=== PATIENT | female | born 1995 | race American Indian/Alaskan Native ===

== ENCOUNTER 2017-06-28 21:45 | Emergency (ER) | payer OTHER ==
[2017-06-28 22:26] LABS: HCG,QUALITATIVE URINE NEGATIVE (NEGATIVE)
[2017-06-28 22:27] LABS: SQUAMOUS EPITHIAL 1 /hpf (0-5); URINE BACTERIA RARE (<OCC); URINE BILIRUBIN NEGATIVE (NEGATIVE); URINE CLARITY Clear (Clear); URINE COLOR Yellow (YELLOW); URINE GLUCOSE (UA) NORMAL (Normal); URINE LEUKOCYTE ESTERASE NEG Leu/uL (Negative); URINE NITRATE NEGATIVE (NEGATIVE); URINE PROTEIN NEGATIVE (NEGATIVE)
[2017-06-28 22:30] LABS: URINE BLOOD NEGATIVE (NEGATIVE)
[2017-06-28] MEDS ORDERED: Sodium Chloride 0.9% 1,000 ML IV ONE (22:42)
[2017-06-28] MEDS ORDERED: Sodium Chloride 0.9% 1,000 ML ONE (23:00)
[2017-06-28 23:14] VITALS: RESP 20
--- NOTE | 2017-06-28 23:16 | C.PDOC ---
History Of Present Illness 22 year old female with history of ovarian cysts presents to the ED c/o right adnexal pain and heavy vaginal bleeding for the past several days. Patient denies any other physical complaints at this time. Time Seen by Provider: 06/28/17 22:37 Chief Complaint (Nursing): Female Genitourinary History Per: Patient History/Exam Limitations: no limitations Onset/Duration Of Symptoms: Days Current Symptoms Are (Timing): Still Present Location Of Pain/Discomfort: Diffuse Radiation Of Pain To:: None Quality Of Discomfort: "Pain" Associated Symptoms: Urinary Symptoms Exacerbating Factors: None Alleviating Factors: None Recent travel outside of the [place]: No Additional History Per: Patient Abnormal Vaginal Bleeding: Yes Past Medical History Reviewed: Historical Data, Nursing Documentation, Vital Signs Vital Signs: Last Vital Signs Temp 99 F 06/29/17 02:57 Pulse 79 06/29/17 02:57 Resp 20 06/29/17 02:57 BP 125/74 06/29/17 02:57 Pulse Ox 99 06/29/17 02:57 - Medical History PMH: No Chronic Diseases Surgical History: No Surg Hx Family History: States: Unknown Family Hx - Social History Hx Alcohol Use: No Hx Substance Use: Yes - Immunization History Hx Tetanus Toxoid Vaccination: No Hx Influenza Vaccination: No Hx Pneumococcal Vaccination: No Review Of Systems Except As Marked, All Systems Reviewed And Found Negative. Genitourinary: Positive for: Vaginal Bleeding, Pelvic Pain Physical Exam - Physical Exam Appears: Non-toxic, No Acute Distress Skin: Normal Color, Warm, Dry Head: Atraumatic, Normacephalic Eye(s): bilateral: Normal Inspection Nose: No Discharge, No Deformity Oral Mucosa: Moist Neck: Normal ROM, Supple Chest: Symmetrical Cardiovascular: Rhythm Regular, No Murmur Respiratory: Normal Breath Sounds, No Rales, No Rhonchi, No Wheezing Gastrointestinal/Abdominal: Soft, No Tenderness, No Guarding, No Rebound Pelvic: Adnexal Tenderness (right) Extremity: Normal ROM, No Pedal Edema, No Calf Tenderness, No Deformity, No Swelling Neurological/Psych: Oriented x3, Normal Speech, Normal Cognition Gait: Steady ED Course And Treatment - Laboratory Results Result Diagrams: 06/28/17 23:49 06/28/17 23:49 O2 Sat by Pulse Oximetry: 100 (On RA) Pulse Ox Interpretation: Normal Medical Decision Making Medical Decision Making: Impression : adnexal pain, heavy vaginal bleeding Plan: * Labs * IV fluids * Tylenol 975 mg PO * UA * Transvaginal US 02:35 - Discussed case with Dr. Malave who states pt can follow up outpt. pt on steriods, suspect luekocytosis 2/2 steriods Disposition - Disposition Referrals: [facility] [Outside] [facility] [Outside] [facility] [Outside] Ivanna Malave MD [Staff Provider] - Disposition: HOME/ ROUTINE Disposition Time: 01:00 Condition: STABLE Additional Instructions: please follow up with obgyn. you will need further eval for your findings. please discuss your findings of your ultrasound with your doctor and obgyn. Instructions: Ovarian Cyst (ED) Forms: [employer] (Nauruan) - Clinical Impression Clinical Impression: Abdominal pain, Ovarian cyst - Scribe Statement The provider has reviewed the documentation as recorded by the Scribe Juventino Amador All medical record entries made by the Scribe were at my direction and personally dictated by me. I have reviewed the chart and agree that the record accurately reflects my personal performance of the history, physical exam, medical decision making, and the department course for this patient. I have also personally directed, reviewed, and agree with the discharge instructions and disposition.
--- NOTE | 2017-06-28 23:43 | US ---
EXAM: US Pelvis Complete, Transabdominal CLINICAL HISTORY: 22 years old, female; Pain; Pelvic pain; Additional info: Right sided pain TECHNIQUE: Real-time transabdominal pelvic ultrasound (complete) with image documentation. COMPARISON: No relevant prior studies available. FINDINGS: Uterus/cervix: Uterus measures 8.2 x 3.5 x 5.3 cm in size. No myometrial mass. Endometrium: 0.8 cm in thickness. Right ovary: 4.2 x 2.2 x 2.5 cm in size. No mass. Normal flow. Left ovary: 6.8 x 5.1 x 6.7 cm in size. 6.6 x 4.6 x 5.4 cm anechoic lesion. Normal flow. Free fluid: Small complex free fluid within pelvis. Bladder: Unremarkable as visualized. IMPRESSION: 1. LEFT ovarian cyst. 2. Complex pelvic ascites, nonspecific. EXAM: US Pelvis, Transvaginal CLINICAL HISTORY: 22 years old, female; Pain; Pelvic pain; Additional info: Right sided pain TECHNIQUE: Real-time transvaginal pelvic ultrasound (complete) with image documentation. Transvaginal imaging was used for better evaluation of the endometrium and adnexa. COMPARISON: No relevant prior studies available. FINDINGS: Uterus/cervix: Uterus measures 8.2 x 3.5 x 5.3 cm in size. No myometrial mass. Endometrium: 0.8 cm in thickness. Right ovary: 4.2 x 2.2 x 2.5 cm in size. No mass. Normal flow. Left ovary: 6.8 x 5.1 x 6.7 cm in size. 6.6 x 4.6 x 5.4 cm anechoic lesion. Normal flow. Free fluid: Small complex free fluid within pelvis. Bladder: Empty bladder which cannot be evaluated with this probe.
[2017-06-28 23:53] LABS: BASO # 0.1 K/uL (0.0-0.2); BASO % 0.4 % (0.0-2.0); EOS # 0.3 K/uL (0.0-0.7); EOS % 1.5 % (0.0-4.0); HEMOGLOBIN 10.3 g/dL (11.0-16.0); LYMPH # 2.4 K/uL (1.0-4.3); LYMPH % 11.6 % (20.0-40.0); MEAN CELL VOLUME 79.5 fL (81.0-99.0); MEAN CORPUSCULAR HEMOGLOBIN 26.2 pg (27.0-31.0); MEAN PLATELET VOLUME 8.2 fL (7.2-11.7); MONO # 0.5 K/uL (0.0-0.8); MONO % 2.3 % (0.0-10.0); NEUT # 17.3 K/uL (1.8-7.0); NEUT % 84.2 % (50.0-75.0); RBC 3.94 Mil/uL (3.80-5.20); RED CELL DISTRIBUTION WIDTH 16.6 % (11.5-14.5); WHITE BLOOD COUNT 20.6 K/uL (4.8-10.8)
[2017-06-29 00:02] LABS: INR 1.2
[2017-06-29 00:04] LABS: ALBUMIN 3.3 g/dL (3.5-5.0); ALT/SGPT 28 U/L (9-52); AST/SGOT 15 U/L (14-36); BLOOD UREA NITROGEN 8 mg/dL (7-17); CALCIUM 8.4 mg/dl (8.6-10.4); GFR AFRICAN-AMERICAN > 60; GFR NON-AFRICAN AMERICAN > 60; LIPASE 79 U/L (23-300)
[2017-06-29] MEDS ORDERED: Barium Sulfate Susp 0.1% w/v, 0.1% w/w 450 mL Bottle PO ONE (00:59)
[2017-06-29] MEDS ORDERED: Iodixanol 320 MG/ML 100 ML BOTTLE IV ONE (00:59)
--- NOTE | 2017-06-29 01:49 | CT ---
EXAM: CT Abdomen and Pelvis With Intravenous Contrast CLINICAL HISTORY: 22 years old, female; Pain; Abdominal pain; Additional info: Rlq pain TECHNIQUE: Axial computed tomography images of the abdomen and pelvis with intravenous contrast. All CT scans at this facility use one or more dose reduction techniques, viz.: automated exposure control; ma/kV adjustment per patient size (including targeted exams where dose is matched to indication; i.e. head); or iterative reconstruction technique. Coronal and sagittal reformatted images were created and reviewed. CONTRAST: 100 mL of [id number] administered intravenously. COMPARISON: PELVIS/TRANSVAG US 2017-06-28 23:05 FINDINGS: Lower thorax: No acute findings. ABDOMEN: Liver: Unremarkable. No mass. Gallbladder and bile ducts: No calcified stones. No ductal dilation. Pancreas: No ductal dilation. No mass. Spleen: Mildly enlarged. Adrenals: No mass. Kidneys and ureters: No mass. No hydronephrosis. Stomach and bowel: No definite mural thickening. No obstruction. Appendix: No definite findings to suggest acute appendicitis. PELVIS: Bladder: Unremarkable. Reproductive: 6.7 x 5.5 x 6.5 cm hypodense lesion within LEFT ovary. ABDOMEN and PELVIS: Intraperitoneal space: Small free fluid within pelvis. Mild stranding within upper pelvis. No free air. Bones/joints: No acute fracture. Soft tissues: Unremarkable. Vasculature: Unremarkable. No aneurysm. Lymph nodes: No pathologically enlarged lymph nodes. IMPRESSION: 1. LEFT ovarian cyst. See ultrasound report. 2. Incidental/non-acute findings are described above.
[2017-06-29 03:01] VITALS: BP 125/74; PULSE 79; TEMP 99
[2017-07-01 09:13] VITALS: O2SAT 100
== END 2017-06-29 03:00 | disposition home or self-care (01) ==
LOC: C.ER 21:45
DX: N83.202 Unspecified ovarian cyst, left side (principal); R10.9 Unspecified abdominal pain
CPT/HCPCS: 74177; 76830; 76856; 80053; 81001; 83690; 84703; 85025; 85610; 85730; 99285; J7040; Q9967